=== PATIENT | male | born 1975 | race Caucasian/White ===

== ENCOUNTER → 2020-11-22 | Day surgery (SDC) | payer OTHER ==
[~2020-11-22] MED LIST: CRESTOR20 M1 PO; PRILOSEC20 MG PO; ZANTAC150 MG PO
== END | disposition home or self-care (01) ==
LOC: FAS 08:45
DX: Z09 Encounter for follow-up examination after completed treatment for conditions other than malignant neoplasm (principal); K21.9 Gastro-esophageal reflux disease without esophagitis; E78.00 Pure hypercholesterolemia, unspecified; Z86.010 Personal history of colon polyps; Z98.890 Other specified postprocedural states; Z79.899 Other long term (current) drug therapy
CPT/HCPCS: J2704; J7120

== ENCOUNTER 2021-12-12 17:10 | Emergency (ER) | payer OTHER ==
[2021-12-12 19:56] LABS: BASOPHIL 0.9 % (0-2); EOSINOPHIL 0.9 % (0-5); HCT 44.4 % (42.0-52.0); HGB 14.7 g/dl (13.2-18.0); LYMPHOCYTE 28.3 % (15-48); MCH 27.6 pg (25.0-31.0); MCHC 33.1 g/dL (32.0-36.0); MCV 83.3 fL (78.0-100.0); MONOCYTE 9.1 % (0-12); MPV 9.9 fL (6.0-9.5); NEUTROPHIL 60.6 % (41-80); NRBC 0; PLT 244 K/uL (150-400); RBC 5.33 M/uL (4.70-6.00); WBC 9.9 K/uL (4.0-10.5)
[2021-12-12 20:16] LABS: ALBUMIN 3.9 g/dL (3.4-5.0); BILIRUBIN - TOTAL 0.5 mg/dL (0.2-1.0); BUN/CREAT RATIO (CALC) 11.8 RATIO; CREATININE 0.93 mg/dL (0.67-1.17); GLOBULIN (CALCULATION) 3.4 g/dL; POTASSIUM 3.8 mmol/L (3.5-5.1); TOTAL PROTEIN 7.3 g/dL (6.4-8.2)
[2021-12-12 21:22] LABS: CORONAVIRUS 2019 SARS-COV-2 NEGATIVE (NEGATIVE); INFLUENZA A NAA NEGATIVE (NEGATIVE)
[2021-12-12] MEDS ORDERED: PROAIR HFA8.5 GM INH (22:00)
[2021-12-12] MEDS ORDERED: PREDNISONE 20MG20 MG PO (22:00)
== END 2021-12-12 22:16 | disposition home or self-care (01) ==
LOC: FER 17:10
PROVIDERS: Internal Medicine; Physician Assistant
DX: R07.9 Chest pain, unspecified (principal); R06.02 Shortness of breath; Z20.822 Contact with and (suspected) exposure to COVID-19
CPT/HCPCS: 36415; 71045; 80053; 83880; 84484; 85025; 85379; 93005; U0002